=== PATIENT | male | born 1995 | race Hispanic/Latino ===

== ENCOUNTER 2016-09-25 09:07 | Emergency (ER) | payer MEDICAID, OTHER ==
[2016-09-25 09:17] VITALS: RESP 18; TEMP 97.8
--- NOTE | 2016-09-25 09:26 | C.PDOC ---
History Of Present Illness The patient, a 21 y/o male, presents to the ED with multiple complaints. Patient reports intermittent episodes of chest pain and headache for 1 week. He reports minimal relief with Motrin 600mg. Patient denies any other associated symptoms. Patient denies fever, chills, vomiting, diaphoresis, 1st degree family members with [place], leg swelling, recent travel. Patient was seen in 2015 for chest pain and headache due to anxiety. Patient is also requesting evaluation for STD. Patient denies rash, penile discharge. He states he uses condoms and denies known STD exposure. MULT COMPLAINTS. INTERMIT CP AND PARADA X 1 WEEK. MIN RELIEF W MOTRIN 600 MG. NO OTHER ASSOC SX. Denies fever, chills, vomiting, diaphoresis, 1st degree family members with [place] at young age, leg swelling, recent travel. SEEN 2014 FOR CP/PARADA DUE TO ANXIETY. ALSO REQUESTING EVAL FOR STD. DENIES RASH, PENILE DC. STATES USES CONDOMS, NO KNOWN STD EXPOSURE. EXAM NAD LUNGS NEG NEG MDM OFFERED TX FOR GC. REFER STD CLINIC IN [place], PMD EVAL. Time Seen by Provider: 09/25/16 09:25 Chief Complaint (Nursing): Chest Pain History Per: Patient History/Exam Limitations: no limitations Onset/Duration Of Symptoms: Intermittent Episodes (one week ) Current Symptoms Are (Timing): Still Present Additional History Per: Patient Past Medical History Reviewed: Historical Data, Nursing Documentation, Vital Signs Vital Signs: Last Vital Signs Temp 97.8 F 09/25/16 09:09 Pulse 72 09/25/16 09:55 Resp 18 09/25/16 09:55 BP 110/70 09/25/16 09:55 Pulse Ox 99 09/25/16 09:55 - Medical History PMH: Anxiety, Asthma, GERD Surgical History: No Surg Hx - [facility] Procedures CLOSURE SKIN & SUBCUTANEOUS NEC (09/06/14) TETANUS TOXOID ADMINIST (09/06/14) Family History: States: Unknown Family Hx - Social History Hx Tobacco Use: No Hx Alcohol Use: No Hx Substance Use: No - Immunization History Hx Tetanus Toxoid Vaccination: No (unknnown) Hx Influenza Vaccination: Yes Hx Pneumococcal Vaccination: No Review Of Systems Except As Marked, All Systems Reviewed And Found Negative. Constitutional: Negative for: Fever, Chills Cardiovascular: Positive for: Chest Pain Gastrointestinal: Negative for: Vomiting Genitourinary: Negative for: Penile Discharge Skin: Negative for: Rash Neurological: Positive for: Headache Physical Exam - Physical Exam Appears: Non-toxic, No Acute Distress Skin: Normal Color, Warm, Dry Head: Atraumatic, Normacephalic Eye(s): bilateral: Normal Inspection Oral Mucosa: Moist Neck: Normal ROM, Supple Chest: Symmetrical, No Deformity, No Tenderness Cardiovascular: Rhythm Regular, No Murmur Respiratory: Normal Breath Sounds, No Rales, No Rhonchi, No Wheezing Back: Normal Inspection, No Vertebral Tenderness, No Paraspinal Tenderness Extremity: Capillary Refill (less than 2 seconds ) Neurological/Psych: Oriented x3, Normal Speech, Normal Cognition ED Course And Treatment ECG: Interpreted By Me ECG Rhythm: Sinus Rhythm ECG Interpretation: Normal Rate From EC O2 Sat by Pulse Oximetry: 100 (on RA) Pulse Ox Interpretation: Normal Progress Note: labs, EKG ordered and reviewed. Patient received Tylenol Patient offered treatment for Chlamydia/GC RNA. Patient was referred to STD clinic in [place] and will be evaluated by PMD. Progress - Data Reviewed Data Reviewed: EKG, Old records Disposition Counseled Patient/Family Regarding: Diagnosis, Need For Followup, Rx Given - Disposition Referrals: YOUR,PMD [Other] Disposition: HOME/ ROUTINE Disposition Time: 09:37 Condition: IMPROVED Additional Instructions: [address] [place] [address], [address] [place] [id number] Laura Schofield, Coat Examiner Description July 2016- STD Awareness Month: Syphilis Strikes Back: https://www.cdc.gov/ std/beto/ [facility] is open to Residents of [place] (with proof of residency): Friday, Friday, and Friday 8:30am to 10:30am and 12:30pm to 2:00 pm and by appointment. The Clinic provides free testing and free treatment for Sexually Transmitted Diseases: Women: Gonorrhea, Syphilis, Chlamydia and Trichomoniasas (trichomoniasas testing for under age 30 ) Testing & Treatment and HIV Referrals ( age 13 and above) Men: Gonorrhea, Syphilis and Chlamydia Testing &Treatment and HIV Referrals ( age 13 and above) Prescriptions: Acetaminophen [Tylenol Extra Strength] 2 tab PO Q6 #30 tablet Azithromycin [Zithromax] 1,000 mg PO ONCE #2 tablet Instructions: Sexually Transmitted Diseases (ED), Noncardiac Chest Pain (ED) - Clinical Impression Clinical Impression: Concern about STD in male without diagnosis, Chest pain, non-cardiac - Scribe Statement The provider has reviewed the documentation as recorded by the Scribe (Annita Waddell) Provider Attestation: All medical record entries made by the Scribe were at my direction and personally dictated by me. I have reviewed the chart and agree that the record accurately reflects my personal performance of the history, physical exam, medical decision making, and the department course for this patient. I have also personally directed, reviewed, and agree with the discharge instructions and disposition.
[2016-09-25 09:56] VITALS: BP 110/70; PULSE 72
[2016-09-25 12:12] VITALS: O2SAT 100
--- NOTE | 2016-09-26 00:38 | CARD ---
APPROVED REPORT EKG Measurement Heart [id number] <Conclusion> Normal sinus rhythm Moderate voltage criteria for LVH, may be normal variant ST elevation, probably due to early repolarization Borderline ECG
== END 2016-09-25 09:56 | disposition home or self-care (01) ==
LOC: C.ER 09:07
DX: R07.89 Other chest pain (principal); Z20.2 Contact with and (suspected) exposure to infections with a predominantly sexual mode of transmission